=== PATIENT | female | born 1950 | race Caucasian/White ===

== ENCOUNTER 2017-03-16 06:16 | Day surgery (SDC) | payer MEDICARE ==
[2017-03-16] VITALS (7 sets, daily range): BP systolic 112–154; BP diastolic 51–65; PULSE 57–69; RESP 16–20; TEMP 97.8; O2SAT 94–97
[~2017-03-16] VITALS: Ht 162.6 cm; Wt 60.9 kg
[~2017-03-16 06:16] MED LIST: ATEN25TA PO; ESTR1DIS T-DERMAL; PROT40TA PO
[2017-03-16] MEDS ORDERED: LIDOCAINE 1%/EPINEPHrine 1:100,000 SOLN 20 ML VIAL ONE (08:05)
[2017-03-16] MEDS ORDERED: MIDAZOLAM HCL 5 MG/5 ML VIAL ONE (08:26)
[2017-03-16] MEDS ORDERED: fentaNYL CITRATE 250 MCG/5 ML AMP ONE (08:26)
[2017-03-16] MEDS ORDERED: SODIUM CHLOR 0.9% 1000 ML IV SCH ×2 (09:45→15:00)
--- NOTE | 2017-03-16 10:47 | RADRPT ---
EXAM DATE/TIME: 03/16/2017 08:40 [place] COMPARISON: No previous studies available for comparison. INDICATIONS : Elevated liver enzymes. SEDATION TIME: 15 minutes BIOPSY SITE: Right upper abdomen. MEDICATION(S): 1.) 25 mg midazolam (Versed) IV 2.) 125 mcg fentanyl (Sublimaze) IV DEVICE(S): 1.) 18 gauge BioPince needle MEDICAL HISTORY : Gastroesophageal reflux disease. Diverticulosis. Lupus. Gastritis, hypertension. SURGICAL HISTORY : Hysterectomy. Breast implants. ENCOUNTER: Initial ACUITY: 1 day PAIN SCORE: 0/10 LOCATION: abdomen. A total of one core specimen(s) were obtained and sent to the laboratory for pathologic evaluation. PROCEDURE: 1. CT guided lung biopsy. 2. Conscious sedation with continuous EKG and oximetry monitoring. 3. EKG and oximetry remained stable throughout the procedure. Prior to the procedure informed consent was obtained. Any appropriate prior imaging studies were rev iewed. Using automated exposure control and adjustment of the mA and/or kV according to patient size, radiat ion dose was kept as low as reasonably achievable to obtain optimal diagnostic quality images. The site was prepped in a sterile fashion. Full sterile technique was used, including cap, mask, letty rile gloves and gown and a large sterile sheet. Hand hygiene and 2% chlorhexidine and/or betadine/al cohol prep was utilized per protocol for cutaneous antisepsis. The skin and subcutaneous tissues wer e infiltrated with local anesthetic solution. With CT guidance the previously identified target was localized. Biopsy was performed using the presc ribed needle as above. Adequate hemostasis was obtained with compression at the puncture site. Follow-up CT scan reveals no hemorrhage. The patient tolerated the procedure well and there were no complications. The patient was returned to the Radiology Outpatient Unit in stable condition. CONCLUSION: Uncomplicated CT guided biopsy of liver for function. Anselmo Jacobson MD FACR on March 16, 2017 at 10:43 Board Certified Radiologist. This report was verified electronically.
== END 2017-03-16 13:10 | disposition home or self-care (01) ==
LOC: HRAD 06:16 → HRIP 06:18 → HRAD 13:10
PROVIDERS: ATTEND Physician Assistant Medical
DX: K76.0 Fatty (change of) liver, not elsewhere classified (principal); K21.9 Gastro-esophageal reflux disease without esophagitis; I10 Essential (primary) hypertension; M32.9 Systemic lupus erythematosus, unspecified; K57.90 Diverticulosis of intestine, part unspecified, without perforation or abscess without bleeding
CPT/HCPCS: 47000; 77012; 88307; 88313; J2250; J3010; J7030